=== PATIENT | male | born 1975 | race Caucasian/White ===

== ENCOUNTER 2021-04-12 04:41 | Emergency (ER) | payer BC ==
[2021-04-12] MEDS ORDERED: Proparacaine 0.5% Ophth Soln 15 ML Bottle EYERT ONE (05:00)
--- NOTE | 2021-04-12 05:26 | EDM.PDOC ---
ED HPI GENERAL MEDICAL PROBLEM - General Chief Complaint: Eye Problems Stated Complaint: SOMETHING IN RIGHT EYE Time Seen by Provider: 04/12/21 04:50 Source of Information: Reports: Patient History Limitations: Reports: No Limitations - History of Present Illness INITIAL COMMENTS - FREE TEXT/NARRATIVE: Patient has had a slowly worsening, reddened, painful right eye for the past 2- 1/2 days. It seems to be more sore on the upper eye. 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 No significant mattering. Onset: Gradual Duration: Day(s): (3 days of symptoms) Location: Reports: Other (Right eye) Worsens with: Reports: Other (Moving the eye or applying pressure to the upper eyelid causes pain) Associated Symptoms: Reports: No Other Symptoms Right Eye Pain Score (Numeric/FACES): 5 - Related Data Allergies Allergy/AdvReac Type Severity Reaction Status Date / Time No Known Allergies Allergy Verified 04/12/21 04:52 Home Meds: Home Meds Rivaroxaban [Xarelto] 10 mg PO DAILY 04/12/21 [History] atenoloL [Atenolol] 25 mg PO DAILY 04/12/21 [History] buPROPion [Wellbutrin] 75 mg PO BEDTIME 04/12/21 [History] Past Medical History Neurological History: Reports: Headaches, Chronic - Infectious Disease History Infectious Disease History: Reports: Chicken Pox, Novel Coronavirus - Past Surgical History Respiratory Surgical History: Reports: Lung Biopsies GI Surgical History: Reports: Appendectomy Social & Family History - Tobacco Use Tobacco Use Status *Q: Never Tobacco User - Caffeine Use Caffeine Use: Reports: Coffee, Energy Drinks, Soda - Recreational Drug Use Recreational Drug Use: No ED ROS GENERAL - Review of Systems Review Of Systems: See Below Constitutional: Denies: Fever, Chills HEENT: Reports: Other (Mild photophobia, very watery eye). Denies: Vision Change Respiratory: Reports: No Symptoms GI/Abdominal: Reports: No Symptoms Neurological: Denies: Headache ED EXAM GENERAL W FULL EYE - Physical Exam Exam: See Below Exam Limited By: No Limitations General Appearance: Alert, No Apparent Distress (Looks uncomfortable but not distressed) Eye Exam: Right Eye: Conjunctival Injection, Other (Right eye had conjunctival edema, marked injection but fluorescein staining revealed no corneal injury and I found no foreign body under the eyelids) Conjunctiva & Sclera: Right: Conjunctival Edema, Injected Cornea Exam: Right: Normal Appearance Extraocular Movements: Bilateral: Intact Respiratory/Chest: No Respiratory Distress Neurological: Alert, Oriented Psychiatric: Normal Affect, Normal Mood Course - Vital Signs Last Recorded V/S: Last Vital Signs Temp 97.9 F 04/12/21 04:56 Pulse 77 04/12/21 04:56 Resp 16 04/12/21 04:56 BP 131/85 04/12/21 04:56 Pulse Ox 98 04/12/21 04:56 - Orders/Labs/Meds Meds: Medications Discontinued Medications Generic Name Dose Route Start Last Admin Trade Name Freq PRN Reason Stop Dose Admin Proparacaine HCl 1 ml 04/12/21 05:00 04/12/21 05:15 Proparacaine 0.5% Ophth Soln 15 Ml Bottle EYERT 04/12/21 05:01 1 drop ONETIME ONE Administration - Re-Assessments/Exams Free Text/Narrative Re-Assessment/Exam: 04/12/21 05:38 Proparacaine anesthesia did improve his pain in the right eye. After anesthesia his eye was examined with both lids everted and no foreign body was seen. There was significant edema and injection of the conjunctiva. With fluorescein staining I did not see an injury to the cornea or any obvious foreign body or ulceration. His eye was examined with a slit lamp. He was put on gentamicin eyedrops, allowed to continue using the proparacaine anesthesia drops but he is going to contact the eye clinics in a few hours when they open and go in for a good optometry exam. I suspect this patient has an iritis or some other problem that may need steroid treatment Departure - Departure Time of Disposition: 05:32 Disposition: Home, Self-Care 01 Clinical Impression: Conjunctivitis Qualifiers: Conjunctivitis type: acute Acute conjunctivitis type: unspecified Laterality: right Qualified Code(s): H10.31 - Unspecified acute conjunctivitis, right eye - Discharge Information Instructions: Bacterial Conjunctivitis, Adult, [id number] Referrals: PCP,None [Primary Care Provider] - Forms: ED Department Discharge Care Plan Goals: Use antibiotic drops 2 drops every 3-4 hours until seen by the eye doctor. Use the numbing drops every 1-2 hours, but if you are using numbing drops it is very important you see the eye doctor today. [facility] or [facility] are both good helpful places for urgent problems. Sepsis Event Note (ED) - Evaluation Sepsis Screening Result: No Definite Risk - Focused Exam Vital Signs: Vital Signs Temp Pulse Resp BP Pulse Ox 04/12/21 04:56 97.9 F 77 16 131/85 98
== END 2021-04-12 05:38 | disposition home or self-care (01) ==
LOC: JP.ED 04:41
DX: H10.31 Unspecified acute conjunctivitis, right eye (principal); Z86.16 Personal history of COVID-19; Z79.01 Long term (current) use of anticoagulants
CPT/HCPCS: 99283; A9270